=== PATIENT | male | born 1950 ===

== ENCOUNTER 2018-09-27 06:09 | Inpatient (IN) | payer MEDICARE, OTHER ==
[~2018-09-27] VITALS: Ht 165.1 cm; Wt 81.6 kg
[2018-09-27] VITALS (12 sets, daily range): BP systolic 117–135; BP diastolic 65–98
[2018-09-27] MEDS ORDERED: UNOBMED (07:09)
[2018-09-27] MEDS ORDERED: Lidocaine 1% MPF 10mg/ml 5ml ONE ×2 (07:14→08:08)
[2018-09-27] MEDS ORDERED: Propofol 200mg/20ml IV ONE (07:14)
[2018-09-27] MEDS ORDERED: fentaNYL 100 mcg/2 mL IV ONE ×2 (07:14→09:12)
[2018-09-27] MEDS ORDERED: Midazolam 2mg/2ml Inj ONE (07:14)
[2018-09-27 07:16] LABS: BASOPHILS % (AUTO) 1.3 % (0.0-2.0); HEMATOCRIT 45.5 % (42.0-52.0); HEMOGLOBIN 15.8 G/DL (14.2-18.0); LYMPHOCYTES % (AUTO) 19.4 % (20.0-45.0); MEAN CORPUSCULAR VOLUME 95 FL (80-99); NEUTROPHILS % (AUTO) 66.4 % (45.0-75.0); PLATELET COUNT 146 K/UL (150-450); RED BLOOD COUNT 4.81 M/UL (4.70-6.10); RED CELL DISTRIBUTION WIDTH 12.7 % (11.6-14.8)
--- NOTE | 2018-09-27 07:29 | Anethesia Preoperative Eval ---
Anesthesia Pre-op PMH/ROS General Date of Evaluation: September 27, 2018 Time of Evaluation: 07:28 Anesthesiologist: Tawnya Viera CRNA ASA Score: ASA 2 Mallampati Score Class I : Soft palate, uvula, fauces, pillars visible Class II: Soft palate, uvula, fauces visible Class III: Soft palate, base of uvula visible Class IV: Only hard plate visible Mallampati Classification: Class II Surgeon: Chandrakant Diagnosis: LEFT knee osteoarthritis Surgical Procedure: LEFT total knee replacement Anesthesia History: none Social History: smoking Family History: no anesthesia problems Allergies: Coded Allergies: No Known Allergies (Unverified , 09/27/18) Medications: see eMAR Patient NPO?: Yes NPO Date: September 26, 2018 NPO Time: 2300 Past Medical History Cardiovascular: Reports: HTN - non-compliant with meds; Denies: CAD, [place], valve dz, arrhythmia, other Pulmonary: Denies: asthma, COPD, DELLA, other Gastrointestinal/Genitourinary: Reports: other - Hx of Hep C, resolved per patient; Denies: GERD, CRI, ESRD Neurologic/Psychiatric: Reports: depression/anxiety; Denies: dementia, CVA, TIA, other Endocrine: Denies: DM, hypothyroidism, steroids, other HEENT: Reports: cataract (L), cataract (R); Denies: glaucoma, PAIMIUT (L), PAIMIUT (R), other Hematology/Immune: Denies: anemia, DVT, bleeding disorder, other Musculoskeletal/Integumentary: Reports: OA; Denies: RA, DJD, DDD, edema, other PMH Narrative: as noted above PSxH Narrative: (B) cataract, LEFT knee arthroscopy Anesthesia Pre-op Phys. Exam Physician Exam Last Vital Signs Date Time Temp Pulse Resp B/P (MAP) Pulse Ox O2 Delivery O2 Flow Rate FiO2 09/27/18 07:13 Room Air 09/27/18 07:09 97.2 71 20 126/74 (91) 95 Constitutional: NAD Neurologic: other - alert & oriented Cardiovascular: RRR Respiratory: CTA Gastrointestinal: S/NT/ND Airway Exam Mallampati Score: Class II MO: full Neck: FROM TMD: >3 FB ROM: full Teeth: intact Dentures: no upper, no lower Anesthesia Pre-op A/P Labs Hematology Test 09/27/18 06:50 White Blood Count 6.0 K/UL (4.8-10.8) Red Blood Count 4.81 M/UL (4.70-6.10) Hemoglobin 15.8 G/DL (14.2-18.0) Hematocrit 45.5 % (42.0-52.0) Mean Corpuscular Volume 95 FL (80-99) Mean Corpuscular Hemoglobin 32.9 PG (27.0-31.0) H Mean Corpuscular Hemoglobin Concent 34.8 G/DL (32.0-36.0) Red Cell Distribution Width 12.7 % (11.6-14.8) Platelet Count 146 K/UL (150-450) L Mean Platelet Volume 6.1 FL (6.5-10.1) L Neutrophils (%) (Auto) 66.4 % (45.0-75.0) Lymphocytes (%) (Auto) 19.4 % (20.0-45.0) L Monocytes (%) (Auto) 11.0 % (1.0-10.0) H Eosinophils (%) (Auto) 2.0 % (0.0-3.0) Basophils (%) (Auto) 1.3 % (0.0-2.0) Coagulation Test 09/27/18 06:50 Prothrombin Time Pending Prothromb Time International Ratio Pending Activated Partial Thromboplast Time Pending Chemistry Test 09/27/18 06:50 Sodium Level Pending Potassium Level Pending Chloride Level Pending Carbon Dioxide Level Pending Blood Urea Nitrogen Pending Creatinine Pending Estimat Glomerular Filtration Rate Pending Glucose Level Pending Calcium Level Pending Studies Pre-op Studies: EKG - LEFT fascicular blocl possible anterolateral infarct Risk Assessment & Plan Assessment: ASA 2, ok to proceed Plan: GA with femoral block Status Change Before Surgery: No Pre-Antibiotics Drug: Tawnya Cabrera CRNA September 27, 2018 07:29
[2018-09-27 07:32] LABS: ANION GAP 9 mmol/L (5-15); BLOOD UREA NITROGEN 17 mg/dL (7-18); CALCIUM 9.1 MG/DL (8.5-10.1); CARBON DIOXIDE 25 MMOL/L (21-32); CHLORIDE 104 MMOL/L (98-107); CREATININE 0.9 MG/DL (0.55-1.30); POTASSIUM 3.8 MMOL/L (3.5-5.1); SODIUM 138 MMOL/L (136-145)
[2018-09-27 07:50] LABS: INR 1.1 (0.9-1.1)
[2018-09-27] MEDS ORDERED: NeoSporin Gu Irrig 1ml Amp IRRIG ONE ×2 (07:55→07:56)
[2018-09-27] MEDS ORDERED: Bacitracin 50000 Units Vial ONE ×2 (07:55→07:56)
--- NOTE | 2018-09-27 08:00 | Pre-Procedure Note/Attestation ---
Pre-Procedure Note/Attestation Complete Prior to Procedure Planned Procedure: left Procedure Narrative: left knee replacemett Indications for Procedure Pre-Operative Diagnosis: left knee arthritis Attestation I attest that I discussed the nature of the procedure; its benefits; risks and complications; and alternatives (and the risks and benefits of such alternatives ), prior to the procedure, with the patient (or the patient's legal sales utility representative). I attest that, if there was a reasonable possibility of needing a blood transfusion, the patient (or the patient's legal sales utility representative) was given the [facility] standardized written summary, pursuant to the [place] Blood Safety Act ([place] Health and Safety Code # 1645, as amended). I attest that I re-evaluated the patient just prior to the surgery and that there has been no change in the patient's H&P, except as documented below: Tomas Stallings MD September 27, 2018 08:00
--- NOTE | 2018-09-27 08:01 | Brief Operative Note ---
Immediate Post Operative Note Operative Note Chief Complaint: left knee arthritis Pre-op Diagnosis: left knee arthritis Procedure: left knee replacement Post-op Diagnosis: arthritis Post-op Diagnosis: same as pre-op Findings: consistent w/pre-op dx studies Surgeon: lily Anesthesia: general Specimen: yes Complications: none Condition: stable Fluids: min Estimated Blood Loss: minimal Drains: hemovac Implant(s) used?: Yes Tomas Stallings MD September 27, 2018 08:01
[2018-09-27] MEDS ORDERED: HYDROcodone/Acetamin 7.5/325 tab ORAL PRN (08:15)
[2018-09-27] MEDS ORDERED: Morphine Sulfate 4mg/ml Inj (IV USE ONLY) IVP PRN (08:15)
[2018-09-27] MEDS ORDERED: Morphine Sulfate 2mg/ml Inj(IV/IM USE ONLY) IVP PRN ×3 (08:15→16:30)
[2018-09-27] MEDS ORDERED: Sterile Water Irrig 1000ml IRRIG ONE (08:30)
[2018-09-27] MEDS ORDERED: Tranexamic Acid 1,000 MG in NS 55 ML IV ONE (08:30)
[2018-09-27] MEDS ORDERED: LR 1000ml ONE (08:30)
[2018-09-27] MEDS ORDERED: Hydromorphone 0.5mg/0.5ml inj IVP PRN (08:30)
[2018-09-27] MEDS ORDERED: Ketorolac 30mg Inj IV PRN (08:30)
[2018-09-27] MEDS ORDERED: NS Irrig 2000ml IRRIG ONE (08:51)
[2018-09-27] MEDS ORDERED: Acetaminophen (Non formulary) 100 ML IV ONE (09:30)
--- NOTE | 2018-09-27 10:46 | Immediate Post-Op Evaluation ---
Immediate Post-Op Evalulation Immediate Post-Op Evalulation Procedure: LEFT total knee replacement Date of Evaluation: September 27, 2018 Time of Evaluation: 10:35 IV Fluids: LR 1600ml Estimated Blood Loss: 100 ml Blood Pressure Systolic: 119 Blood Pressure Diastolic: 77 Pulse Rate: 70 Respiratory Rate: 16 O2 Sat by Pulse Oximetry: 100 Temperature (Fahrenheit): 97.2 Pain Score (1-10): 2 Nausea: No Vomiting: No Complications none Patient Status: patent, extubated Hydration Status: adequate Drug: cefazolin 2000 mg IV Given Within 1 Hr of Incision: Yes Time Given: 08:45 Tawnya Viera CRNA September 27, 2018 10:46
--- NOTE | 2018-09-27 11:53 | NUR ---
NURSE NOTES: received patient asleep but arosable for name, on oxygen 3L, VS WNL, surgical site with LYNDA wrap and knee immobilizer, no bleeding noted, neuro check stable, circulation with in normal limit. PT Darell aware of POD#0 eval. Patient has valubelse at bed side and refused to send it to the safe. signed the form to keep it at bedside, Receiving nurse verified the belonging as listed on the belonging list paper and signed by both nurses. It has a black LG phone with out no shake feeder. Patient verbalized takes blood pressure medication two kind but doesn't know the name of the medication, patient still sleepy will follow up when he wakes up. Dr. Pete notified of patient arrival and home medication situation.
--- NOTE | 2018-09-27 12:05 | Diagnostic Imaging Report ---
Indication: Knee pain Technique: 3 views of the left knee Comparison: None Findings: Bone mineralization within normal. No acute fracture identified. Overall moderate osteoarthrosis of the knee is noted with joint space narrowing and tricompartmental osteophytes. Joint space narrowing is most severe in the patellofemoral and femorotibial compartments. No suprapatellar joint effusion. No radio opaque foreign body. Impression: Osteoarthrosis. No evidence of acute fracture.
--- NOTE | 2018-09-27 13:17 | NUR ---
NURSE NOTES: patient has hiw own walker at bedside with patient label on it. Addendum: 09/27/18 at 1754 by MARIE CROWELL RN NURSE NOTES: patient has his own walker at bedside with patient label on it.
[2018-09-27] MEDS: Enoxaparin 40mg Inj SUBQ SCH (14:00)
--- NOTE | 2018-09-27 14:21 | Diagnostic Imaging Report ---
Indication: Pain Technique: 2 portable views of the left knee Comparison: Earlier the same day Findings: Interval surgery with total knee arthroplasty. No hardware-related complication is evident. Gas in the joint and subcutaneous tissues consistent with recent surgery. Surgical skin juan antonio are noted. External brace is noted. Impression: Expected appearance status post recent total knee arthroplasty. No evidence of hardware-related complication.
[2018-09-27] MEDS: D5 1/2NS w/KCl 20mEq 1,000 ML IV SCH (14:59)
--- NOTE | 2018-09-27 15:30 | NUR ---
NURSE NOTES: Unable to verify ordered Lovenox from Dr. Estrada, Dr. Jarquin tried to reach Dr. Estrada and Yanci to verify as well unable to get confirmation to administer the medication POD#0, Pharmacist Edwin notified regarding the order as well unable to obtain an ok to administer the medication. Med on hold till order verify to start today.
[2018-09-27] MEDS ORDERED: AMLODIPINE BESYL5 MG ORAL (15:39)
[2018-09-27] MEDS ORDERED: HYDROCHLOROTH12.5 M2 ORAL (15:39)
[2018-09-27] MEDS ORDERED: BUPROPION HCL100 MG ORAL (15:39)
[2018-09-27] MEDS ORDERED: Chloraseptic Spray 20mL Bottle ORAL PRN (16:00)
[2018-09-27] MEDS ORDERED: HYDROcodone/Acetamin 5/325 tab ORAL PRN (16:30)
[2018-09-27] MEDS ORDERED: oxyCODONE 5mg IR tab ORAL SCH (16:34)
[2018-09-27] MEDS: ceFAZolin sod 1 GM in D5W 55 ML IV SCH (17:11)
[2018-09-27] MEDS: Docusate 100mg cap ORAL SCH (17:20)
--- NOTE | 2018-09-27 17:54 | NUR ---
NURSE NOTES: Patient unable to tolerate CPM 60 degree reduced to 45 able to tolerate 90min. Neuro check stable no bleeding. Home medication list given by Dr. Pete reconciled.
--- NOTE | 2018-09-27 18:00 | NUR ---
P.T Note:late entry 1345 Order for CPM received. CPM set up and currently tolerating 0-60 deg. Education patient on use and benefits of CPM post op. Pt verbalized/indicated understanding. CPM endorsed to nursing at the end of P.T shift.
--- NOTE | 2018-09-27 18:06 | NUR ---
P.T Note: late entry 1345 P.T evaluation completed and treatment initiated POD #0 per TKR protocol. Please refer to P.T evaluation for current functional status. Pt is limited by L knee LOM and pain as well as feeling groggy due to medications/ anaesthesia still in effect post op. Pt Able to perform bed mobility and transfer mobility with MIN A X 1 and was able to ambulate total of 15 ft with MIN A X 1 : unable to ambulate farther distance due to pt feeling groggy. CPM set up and tolerating 0-60 deg. Pt will be seen BID 7x/wk or until DC. Recommend FWW and raised toilet seat at DC. Thank you for this referral.
--- NOTE | 2018-09-27 19:41 | NUR ---
HAND-OFF: Report given to SHERRI Johnson patient stable condition reporting pain 7/10 med will be given.
--- NOTE | 2018-09-27 19:43 | NUR ---
NURSE NOTES: Report taken from SHERRI Canela. Patient is awake and in bed, A&Ox4. No signs of distress on room air. Complaining of increasing pain since the spinal block has been wearing down, 10/30, central to surgical site. Surgical site wrapped in LYNDA bandage, no saturation, c/d/i. Circulation to left LE intact, foot warm to the touch. Patient stated he has gotten back most of his sensation. IV site c/d/i and patent running D5 1/2 NS+20KCl at 75mls/hr. Has knee immobilizer order, currently off. He has all of his valuable at bedside, refused to give to security. Bed in lowest position, call light within reach.
[2018-09-27] MEDS: Hydromorphone 0.5mg/0.5ml inj SUBQ PRN (20:18)
[2018-09-27] MEDS: Dronabinol 2.5mg Cap ORAL SCH (21:30)
[2018-09-28] MEDS: ceFAZolin sod 1 GM in D5W 55 ML IV SCH (00:42)
[2018-09-28] MEDS: Hydromorphone 0.5mg/0.5ml inj SUBQ PRN ×3 (00:47→19:46)
--- NOTE | 2018-09-28 02:00 | Consultation ---
DATE OF CONSULTATION: 09/27/2018 CONSULTING PHYSICIAN: Lopez Jarquin M.D. REFERRING PHYSICIAN: Tomas Stallings M.D. REASON FOR CONSULTATION: Acute pain consult. HISTORY OF PRESENT ILLNESS: Dear Dr. Tomas Stallings, Thank you kindly for consulting me to evaluate and render an opinion as to how to proceed in the management of the patient's acute postoperative left knee pain after left total knee arthroplasty. The patient is a 68-year-old gentleman, who I saw at the bedside on your request to help with his pain control. I saw the patient at the bedside. I performed a detailed history and physical examination I discussed the case with the nurse RN, Hilton along with yourself, Dr. Stallings. I reviewed the medical record in detail including advance directives. PAST MEDICAL HISTORY: 1. Acute postoperative left knee pain status post left total knee arthroplasty by Dr. Tomas Stallings in September 2017. 2. Elderly age. 3. Hepatitis C. 4. Hypertension. 5. Mild obesity. PAST SURGICAL HISTORY: Left knee arthroscopy. MEDICATIONS AT HOME: Bupropion 100 mg daily, hydrochlorothiazide, and Norvasc. ALLERGIES: No known drug allergies. SOCIAL HISTORY: The patient lives in [place], [place]. He denies tobacco usage. He admits to drinking a few beers on the weekends. He admits to smoking 3 or 4 puffs of marijuana a few times per month at social gatherings. FAMILY HISTORY: Lung disease. REVIEW OF SYSTEMS: Per Dr. Gama Pete. PHYSICAL EXAMINATION: GENERAL: Age 68, height 5 feet 6 inches, weight 186 pounds, and body mass index 30. VITAL SIGNS: Afebrile, pulse 69, respirations 19, blood pressure 129/83, and oxygen saturation 96%. HEENT: Normocephalic and atraumatic. Extraocular muscles intact. Pupils are equal, round, and reactive to light and accommodative. The patient's face has a reddish hue. EXTREMITIES: Moving all extremities x4 with significant pain with movement of the left knee especially with flexion. The dressing is clean and dry. Moving all toes x10. Moving all extremities x4. NEUROLOGIC: Detailed neurologic exam per Dr. Stallings. CARDIOPULMONARY: Deferred to Dr. Pete. DIAGNOSTIC AND LABORATORY STUDIES: Diagnostic testing shows laboratory studies from 09/25/2018, white count 7, hematocrit 48, and platelets 160,000. Sodium 142, potassium 4.5, chloride 106, bicarb 27, glucose 103, BUN 12, and creatinine 0.8. Calcium 9.5. Total protein 7.9. Albumin 4.0. Alkaline phosphatase 103, AST 38, and ALT 39. Total bilirubin 0.6. INR 1.1. PTT 27. Urinalysis is negative. A 12-lead EKG shows normal sinus rhythm, left anterior fascicular block dated 09/25/2018, ventricular rate 77. Echocardiogram shows ejection fraction 60% to 65% dated 09/25/2018. Pulmonary function testing in the medical record. Preoperative chest x-ray shows normal chest exam 09/25/2018. IMPRESSION: 1. Acute postoperative left knee pain status post left total knee arthroplasty by Dr. Tomas Stallings in September 2017. 2. Elderly age. 3. Hepatitis C. 4. Hypertension. 5. Mild obesity. TREATMENT RECOMMENDATIONS: I have recommended the following orders to help with his pain control postoperatively. I have asked the nurse to dose the patient with oxycodone instant release 5 mg now as a test trial dose. I will continue this dosing every three hours p.r.n. for mild pain. I have ordered a breakthrough dose of Dilaudid 0.5 mg subcutaneously every three hours p.r.n. for moderate pain. I will trial the patient on a nightly dose of Marinol 2.5 mg as the patient does admit to using marijuana from time to time. The patient does drink alcohol on a fairly regular basis on the weekends. If his admission drinking is less than actual, the patient may need a dosing of benzodiazepine to prevent delirium tremens. I will defer this issue to Dr. Pete. He is following the patient on a long-term basis in the outpatient setting and also will be seeing the patient here in the hospital to manage his hypertension and other medical issues. I will empirically place the patient on Pepcid 20 mg b.i.d. for GI ulcer prophylaxis. I have ordered p.r.n. dose of Mylanta 30 mL p.r.n. for any GERD symptoms. The patient will be placed on Colace 100 mg b.i.d. as a stool softener, but I will defer any laxatives at this time until the patient is more ambulatory. The patient will begin the physical therapy training per Dr. Stallings, who has also appropriately ordered Lovenox as a chemical anticoagulant in this patient. The patient is at significant risk for deep venous thrombosis and pulmonary embolism complications due to the nature of the surgery. I have ordered Benadryl 25 mg orally every 6 hours in case of any itching complaints. Zofran is available as a rescue antiemetic. I did demonstrate proper usage of incentive spirometer at the patient's bedside to encourage good pulmonary toilet. Case management department has been consulted by Dr. Stallings today to assist with discharge planning. Lopez Jarquin M.D. DR: DENISE JOB#: [id number] CC:
[2018-09-28] MEDS: D5 1/2NS w/KCl 20mEq 1,000 ML IV SCH (02:30)
[2018-09-28] MEDS ORDERED: Hydromorphone 0.5mg/0.5ml inj SUBQ SCH (07:07)
[2018-09-28 07:20] LABS: INR 1.1 (0.9-1.1)
[2018-09-28 07:21] LABS: BASOPHILS % (AUTO) 0.8 % (0.0-2.0); EOSINOPHILS % (AUTO) 1.5 % (0.0-3.0); HEMATOCRIT 40.9 % (42.0-52.0); HEMOGLOBIN 14.4 G/DL (14.2-18.0); LYMPHOCYTES % (AUTO) 7.6 % (20.0-45.0); MEAN CORPUSCULAR VOLUME 94 FL (80-99); MONOCYTES % (AUTO) 10.3 % (1.0-10.0); NEUTROPHILS % (AUTO) 79.8 % (45.0-75.0); PLATELET COUNT 126 K/UL (150-450); RED BLOOD COUNT 4.34 M/UL (4.70-6.10); RED CELL DISTRIBUTION WIDTH 12.7 % (11.6-14.8); WHITE BLOOD COUNT 9.1 K/UL (4.8-10.8)
--- NOTE | 2018-09-28 07:48 | NUR ---
HAND-OFF: Report given to SHERRI Vazquez. Patient is fatigued and in bed. VS stable.
[2018-09-28 08:00] VITALS: BP 120/70
--- NOTE | 2018-09-28 08:00 | NUR ---
NURSE NOTES: Report received from outgoing nurse, rounds made. Patient resting in high fowlers position in bed. No SOB on RA, No NV. Patient reports pain 9/10 to LLE, will medicate as ordered by Dr. Jarquin. Ice pack to left knee. Surgical dressing to left knee CDI, immobilizer in place. CMS +, denies NT, wiggles, skin warm, pedal pulse palpable, capillary refill <3 seconds. Right SCD on. Encouraged oral intake, IVF infusing to right hand as ordered, 75 ml/hr, site asymptomatic. Demonstrated IS use, with voluntary coughing, patient returned demonstration, requires reinforcement. Call light in reach, bed in lowest position, will continue to monitor.
[2018-09-28] MEDS: BuPROPion SR 100mg tab ORAL SCH (08:34)
[2018-09-28] MEDS: Docusate 100mg cap ORAL SCH ×2 (08:35→17:41)
[2018-09-28] MEDS ORDERED: hydroCHLOROthiazide 12.5mg TAB ORAL SCH (09:00)
--- NOTE | 2018-09-28 09:37 | 48 Hour Post Anesthesia Eval ---
Post Anesthesia Evaluation Procedure: LEFT total knee replacement Date of Evaluation: September 28, 2018 Time of Evaluation: 09:36 Blood Pressure Systolic: 134 0: 72 Pulse Rate: 68 Respiratory Rate: 20 Temperature (Fahrenheit): 97.6 O2 Sat by Pulse Oximetry: 98 Airway: patent Nausea: No Vomiting: No Pain Intensity: 3 Hydration Status: adequate Cardiopulmonary Status: stable Mental Status/LOC: patient returned to baseline Follow-up Care/Observations: n/a Post-Anesthesia Complications: none Follow-up care needed: N/A Trveer Hassan MD September 28, 2018 09:37
--- NOTE | 2018-09-28 09:50 | NUR ---
NURSE NOTES: Notified Dr. Pete of platelets 126, order received for okay to give Lovenox. See orders.
[2018-09-28] MEDS: Enoxaparin 40mg Inj SUBQ SCH (10:13)
[2018-09-28] MEDS: oxyCODONE 5mg IR tab ORAL PRN ×2 (10:42→15:12)
[2018-09-28 12:00] VITALS: BP 117/88
--- NOTE | 2018-09-28 12:05 | NUR ---
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 No evidence of acute fracture. IS:LEFT TOTAL KNEE REPLACEMENT SURGERY ADMITTED ON 3E MED/SURG DCP: RETURN HOME
--- NOTE | 2018-09-28 12:27 | General Progress Note ---
Assessment/Plan Assessment/Plan: left knee arthritis left knee replacement PLAN 1. incentive spirometry 2. Lovenox 3. PT evaluation and therapy 4. Hydration 5. Pain management 6. discharge once stable with outpatient follow up Subjective Allergies: Coded Allergies: No Known Allergies (Unverified , 09/27/18) Subjective care noted overall doing well Objective Last 24 Hour Vital Signs Date Time Temp Pulse Resp B/P (MAP) Pulse Ox O2 Delivery O2 Flow Rate FiO2 09/28/18 09:37 68 20 98 09/28/18 09:00 Room Air 09/28/18 08:35 78 120/70 09/28/18 08:00 98.5 78 17 120/70 (87) 92 09/27/18 21:00 Room Air 09/27/18 13:00 97.7 69 19 129/83 (98) 96 09/27/18 12:30 98.2 71 17 134/98 (110) 98 Intake and Output 09/27/18 09/28/18 18:59 06:59 Intake Total 1800 ml 450 ml Output Total 800 ml 550 ml Balance 1000 ml -100 ml Intake Oral 450 ml IV Total 1800 ml Output Urine Total 700 ml 550 ml Estimated Blood Loss 100 ml # Voids 1 1 Laboratory Tests 09/28/18 06:30: White Blood Count 9.1#, Red Blood Count 4.34L, Hemoglobin 14.4, Hematocrit 40.9L , Mean Corpuscular Volume 94, Mean Corpuscular Hemoglobin 33.1H, Mean Corpuscular Hemoglobin Concent 35.1, Red Cell Distribution Width 12.7, Platelet Count 126L, Mean Platelet Volume 6.8, Neutrophils (%) (Auto) 79.8H, Lymphocytes (%) (Auto) 7.6L, Monocytes (%) (Auto) 10.3H, Eosinophils (%) (Auto) 1.5, Basophils (%) (Auto) 0.8, Prothrombin Time 11.5, Prothromb Time International Ratio 1.1 Height (Feet): 5 Height (Inches): 5.00 Weight (Pounds): 180 Objective WDWN NAD clear breath sounds bilaterally without rhonchi or wheeze [id number] without MRG NABS nontender no HSM no CCE nonfocal knee dressed Gama Pete MD September 28, 2018 12:27
[2018-09-28 16:00] VITALS: BP 133/81
--- NOTE | 2018-09-28 16:30 | NUR ---
NURSE NOTES: CPM continues at 50 degrees, medicated with Roxicodone at 1512, increased CPM to 55 degrees at 1545. Patient requested to be decreased to 50 degrees at 1555. Reviewed plans and CPM goal with patient, verbalized understanding. Provided ice pack. Will continue to monitor.
--- NOTE | 2018-09-28 17:00 | Progress Note ---
DATE: 09/28/2018 ACUTE PAIN MANAGEMENT PHYSICIAN PROGRESS NOTE MEDICATIONS: Medication administration record reviewed. Medications include Tylenol, Mylanta, Norvasc, Wellbutrin, Benadryl, Colace, Marinol, Lovenox, Pepcid, Dilaudid, Zofran, oxycodone, Chloraseptic spray. LABORATORY STUDIES: From this morning are pending. Yesterday morning preoperatively showed a hematocrit of 46 with a white count of 6, platelets 146,000. Vital signs, currently within normal limits. Afebrile, pulse 69, respirations 19, blood pressure 129/83, oxygen saturation 96% on room air. I saw the patient at the bedside after discussion with the nurse, Antwon. The patient did tolerate his nightly dose of Marinol without any over sedation. He has used breakthrough doses of subcutaneous Dilaudid with good efficacies. Later today, we hope to trial the oral oxycodone tablets for tolerability and effectiveness. The patient is alert and oriented x3. He denies any shortness of breath or chest pain. Dr. Stallings has ordered Lovenox to start this morning for chemical anticoagulation. Incentive spirometer remains at the bedside to encourage good pulmonary toilet. The patient has already been using the CPM device and will continue per surgical recommendations. Physical therapy training will start today with ambulation. Overall, the patient is making good progress. We will contact case management department to help with discharge planning. Lopez Jarquin M.D. DR: Venessa JOB#: [id number] CC:
--- NOTE | 2018-09-28 19:30 | NUR ---
NURSE NOTES: Received report from SHERRI Vazquez and rounds done. Received pt laying in bed, AOX4, pain level 7/10, will medicate for pain, no distress noted. L knee on CPM tolerating 0-60 degrees. Surgical dressing C/D/I. Scd in-place on right lower extremity. Bed in low position and locked, side rails up x 2, call light within reach. Will continue to monitor.
--- NOTE | 2018-09-28 19:30 | NUR ---
HAND-OFF: Report given to Ruslan Santos RN.
[2018-09-28 20:00] VITALS: BP 132/86
[2018-09-28] MEDS: Dronabinol 2.5mg Cap ORAL SCH (20:43)
--- NOTE | 2018-09-28 21:00 | NUR ---
NURSE NOTES: CPM discontinued placed rolled towel underneath left ankle. Pt denies pain at this time. No distress noted. Will continue to monitor.
[2018-09-29] VITALS (7 sets, daily range): BP systolic 99–139; BP diastolic 68–86
--- NOTE | 2018-09-29 00:27 | NUR ---
NURSE NOTES: Pt's temp. 101.5. Tylenol 650mg PO given. Pt denies any pain at this time. No distress noted. Will continue to monitor.
[2018-09-29] MEDS: oxyCODONE 5mg IR tab ORAL PRN ×2 (01:04→12:32)
--- NOTE | 2018-09-29 01:06 | NUR ---
NURSE NOTES: Re-check temp. 99.6. Instructed pt to use IS q hour x 10 while awake. Pt verbalized understanding of instruction.
[2018-09-29] MEDS: Hydromorphone 0.5mg/0.5ml inj SUBQ PRN ×2 (04:58→16:18)
--- NOTE | 2018-09-29 05:40 | NUR ---
NURSE NOTES: POD #2 today, dressing change done to left knee per MD order. Applied 4x4 and tegaderm, clean dry and intact. No bleeding noted. Pt tolerated procedure well.
[2018-09-29 06:40] LABS: BASOPHILS % (AUTO) 1.3 % (0.0-2.0); HEMATOCRIT 40.6 % (42.0-52.0); HEMOGLOBIN 14.2 G/DL (14.2-18.0); LYMPHOCYTES % (AUTO) 13.1 % (20.0-45.0); MEAN CORPUSCULAR VOLUME 94 FL (80-99); MONOCYTES % (AUTO) 14.1 % (1.0-10.0); NEUTROPHILS % (AUTO) 70.6 % (45.0-75.0); PLATELET COUNT 144 K/UL (150-450); RED BLOOD COUNT 4.32 M/UL (4.70-6.10); RED CELL DISTRIBUTION WIDTH 12.2 % (11.6-14.8); WHITE BLOOD COUNT 10.9 K/UL (4.8-10.8)
[2018-09-29 07:20] LABS: INR 1.1 (0.9-1.1)
--- NOTE | 2018-09-29 07:20 | NUR ---
NURSE NOTES: Report received from Ruslan POLANCO, rounds made. Patient sleeping in supine position, in bed. No distress noted on RA. Right hand heplock intact, site asymptomatic. Left knee dressing noted with bloody shadow drainage, outlined. Call light in reach, bed in lowest position, will continue to monitor.
--- NOTE | 2018-09-29 07:32 | NUR ---
HAND-OFF: Report given to SHERRI Vazquez. Pt stable condition.
--- NOTE | 2018-09-29 08:00 | Progress Note ---
DATE: 09/29/2018 ACUTE PAIN MANAGEMENT PHYSICIAN PROGRESS NOTE MEDICATIONS: Medication administration record reviewed. Medications include Colace, Pepcid, Lovenox, Norvasc, Wellbutrin, and nightly Marinol. P.r.n. medications include Chloraseptic spray, Mylanta, Benadryl, Zofran, Tylenol, oxycodone, and Dilaudid. OBJECTIVE: VITAL SIGNS: Afebrile currently with a T-max of 101.5 at 1 o'clock this morning. Pulse 96, respirations 19, blood pressure 135/82, and oxygen saturation % on room air. I saw the patient at the bedside. I have discussed the case with the nurse RN, Ruslan. The nurse changed the knee dressing. The patient received his nightly Marinol dosing without any oversedation. This seems to be a good sedative agent for the patient to help him sleep and to help with his pain. The patient has been alternating with p.r.n. doses of oxycodone 5 mg along with breakthrough doses of subcutaneous Dilaudid. I will continue this analgesic plan has ordered, as it seems effective. The patient has been able to advance with his CPAP device as well as with ambulation. Lovenox has been started at 40 mg daily for DVT prophylaxis. I do have the patient on Pepcid b.i.d. for GI ulcer prophylaxis. The patient is breathing comfortably on room air. I would recommend increase incentive spirometer usage to help with better pulmonary toilet due to his recent fevers. Dr. Pete, is following the patient for his multiple medical issues including hypertension. The spring encaser, Lacy , has been evaluating the patient for discharge planning. I will leave a prescription for Percocet for outpatient usage. Lopez Jarquin M.D. DR: MYLA JOB#: [id number] CC:
--- NOTE | 2018-09-29 08:57 | General Progress Note ---
Assessment/Plan Assessment/Plan: left knee arthritis left knee replacement PLAN 1. incentive spirometry 2. Lovenox 3. PT evaluation and therapy 4. Hydration 5. Pain management 6. discharge planning Subjective Allergies: Coded Allergies: No Known Allergies (Unverified , 09/27/18) Subjective care noted overall doing well Objective Last 24 Hour Vital Signs Date Time Temp Pulse Resp B/P (MAP) Pulse Ox O2 Delivery O2 Flow Rate FiO2 09/29/18 04:00 99.0 96 19 135/82 (99) 96 09/29/18 01:06 99.6 09/29/18 00:56 99.6 09/29/18 00:56 101.5 09/29/18 00:00 101.5 95 20 139/83 (101) 96 09/28/18 21:00 Room Air 09/28/18 20:00 99.0 93 20 132/86 (101) 95 09/28/18 16:00 98.7 77 20 133/81 (98) 96 09/28/18 12:00 98.1 84 19 117/88 (98) 97 09/28/18 09:37 68 20 98 09/28/18 09:00 Room Air Intake and Output 09/28/18 09/29/18 19:00 07:00 Intake Total 300 ml 480 ml Output Total 1000 ml Balance 300 ml -520 ml Intake Oral 480 ml IV Total 300 ml Output Urine Total 1000 ml # Voids 1 Laboratory Tests 09/29/18 05:50: White Blood Count 10.9H, Red Blood Count 4.32L, Hemoglobin 14.2, Hematocrit 40.6L, Mean Corpuscular Volume 94, Mean Corpuscular Hemoglobin 32.8H, Mean Corpuscular Hemoglobin Concent 35.0, Red Cell Distribution Width 12.2, Platelet Count 144L, Mean Platelet Volume 6.3L, Neutrophils (%) (Auto) 70.6, Lymphocytes (%) (Auto) 13.1L, Monocytes (%) (Auto) 14.1H, Eosinophils (%) (Auto) 1.0, Basophils (%) (Auto) 1.3, Prothrombin Time 11.4, Prothromb Time International Ratio 1.1 Height (Feet): 5 Height (Inches): 5.00 Weight (Pounds): 180 Objective WDWN NAD clear breath sounds bilaterally without rhonchi or wheeze [id number] without MRG NABS nontender no HSM no CCE nonfocal knee dressed Gama Pete MD September 29, 2018 08:57
[2018-09-29] MEDS: Docusate 100mg cap ORAL SCH ×2 (09:56→18:07)
[2018-09-29] MEDS: Enoxaparin 40mg Inj SUBQ SCH (09:56)
[2018-09-29] MEDS: BuPROPion SR 100mg tab ORAL SCH (09:56)
--- NOTE | 2018-09-29 14:51 | Cardiology Report ---
APPROVED REPORT EKG Measurement Heart [id number] Normal sinus rhythm Left anterior fascicular block Possible Anterolateral infarct, age undetermined Abnormal ECG
--- NOTE | 2018-09-29 16:00 | NUR ---
NURSE NOTES: Reinforced the importance of IS every hour with voluntary coughing. Patient performs IS use correctly, needs reminders throughout shift. Patient encouraged to increase PO fluid intake. Verbalized understanding. Will continue to monitor.
--- NOTE | 2018-09-29 19:15 | NUR ---
NURSE NOTES: Left knee dressing changed 1215, due to increased bloody (fresh red blood) drainage from left knee surgical incision, active bleeding noted with dressing change, juan antonio intact, skin together, no redness, mild swelling, no odor. Called Dr. Stallings, and notified of above, was instructed to follow up with Dr. Pete. Called Dr. Pete, notified of vitals, afebrile, labs, Lovenox, mild swelling, surgical site characteristics, orders received to apply pressure dressing and hold Lovenox x2 days, 09/30 and 10/01. Patient updated with new plan of care. New dressing applied at 1630 (4x4, tegederm, sally wrap), no active bleeding noted with dressing change. Ice pack applied to posterior and left lateral knee for comfort. Reassessed left knee dressing at 1915, x2 small areas of light shadow drainage, noted and circled. Will endorse to next shift RN for further assessment and monitoring.
--- NOTE | 2018-09-29 19:15 | NUR ---
HAND-OFF: Report given to Venice POLANCO.
--- NOTE | 2018-09-29 19:15 | NUR ---
HAND-OFF: Report given to Venice POLANCO. Endorsed left knee surgical wound site status, with new x2 small light shadow drainage, circled. Pressure dressing (LYNDA wrap) in place.
--- NOTE | 2018-09-29 19:30 | NUR ---
NURSE NOTES: Received report from SHERRI Vazquez. Noted two small bleeding areas, circled by previous shift. No increase in bleeding noted. Dario wrap reapplied. Patient denied pain, bed in low position, locked, side rails up x2, call light within reach. Encouraged to use incentive spirometer. Patient states he has been doing IS exercises. Encouraged to drink fluids.
[2018-09-29] MEDS: Dronabinol 2.5mg Cap ORAL SCH (20:51)
--- NOTE | 2018-09-29 22:56 | NUR ---
HAND-OFF: Report given to SHERRI Hollins. Patient in stable condition.
--- NOTE | 2018-09-29 23:00 | NUR ---
NURSE NOTES: Received report & pt from SHERRI Millard. Pt lying in bed, a&ox4, in room air, family member at bedside. No s/s of acute distress & no c/o pain. Surgical dressing C/D/I. No IV access noted, will start one later. Bed in lowest position, call light within reach. Will continue to monitor.
[2018-09-30] VITALS: BP 128/83
--- NOTE | 2018-09-30 00:15 | NUR ---
NURSE NOTES: Given PRN tylenol for temp of 100.8, encouraged and witnessed the use of incentive spirometer. Surgery dressing dry and intact. Fresh ice packs applied to posterior knee.
--- NOTE | 2018-09-30 00:19 | NUR ---
HAND-OFF: Report given to SHERRI Franco.
[2018-09-30 04:00] VITALS: BP 128/85
--- NOTE | 2018-09-30 06:45 | Progress Note ---
DATE: 09/30/2018 ACUTE PAIN MANAGEMENT PHYSICIAN PROGRESS NOTE MEDICATIONS: Medication administration record reviewed. Medications include Chloraseptic spray, oxycodone, Zofran, Dilaudid, Pepcid, Lovenox, Marinol, Colace, Benadryl, Wellbutrin, Norvasc, Mylanta, and Tylenol. LABORATORY STUDIES: From September 29, 2018 shows white count 11, hematocrit 41, and platelets 144. INR 1.1. OBJECTIVE: VITAL SIGNS: Afebrile with a T-max of 100.8 at midnight, pulse 96, respirations 17, blood pressure 128/85, and oxygen saturation 98% on room air. I saw the patient at the bedside. I discussed the case with the nurse RN, Joan. Dr. Pete continues to follow the patient for his medical issues and his postoperative fevers. The patient continues to use the nightly Marinol dosing for his primary analgesia. He uses p.r.n. Tylenol and intermittent doses of oxycodone and Dilaudid to help with his pain as well. This regimen seems to be very effective. The knee dressing is clean and dry. The patient continues to advance with CPM and ambulation rehabilitation. I did leave a prescription for Percocet for outpatient usage. The patient has not been very compliant with his incentive spirometer. Incentive spirometer usage was encouraged to use more aggressively. The patient remains on Lovenox 40 mg daily for DVT prophylaxis. The patient remains on his Wellbutrin for mood stabilization. Lopez Jarquin M.D. DR: MYLA JOB#: [id number] CC:
--- NOTE | 2018-09-30 07:40 | NUR ---
HAND-OFF: Report given to SHERRI Bangura.
--- NOTE | 2018-09-30 07:45 | NUR ---
NURSE NOTES: Received patient in bed, awake, alert and oriented x4. Denies any pain or discomfort @ this time. Surgical dressing intact, no visible active bleeding noted on the dressing. SCD's on right leg. IV intact, no s/s of infiltration. Patient uses urinal. Afebrile @ this time. Bed is in low position and locked. Call light and personnel items within reach. Will continue plan of care.
[2018-09-30 08:00] VITALS: BP 114/72
[2018-09-30] MEDS: Docusate 100mg cap ORAL SCH ×2 (08:35→17:54)
[2018-09-30] MEDS: BuPROPion SR 100mg tab ORAL SCH (08:35)
--- NOTE | 2018-09-30 09:54 | Pulmonology Progress Note ---
Assessment/Plan Assessment/Plan Pulmonary Progress Assessment/Plan: left knee arthritis left knee replacement PLAN 1. incentive spirometry 2. Lovenox 3. PT evaluation and therapy 4. Hydration 5. Pain management 6. discharge planning Subjective Allergies: Coded Allergies: No Known Allergies (Unverified , 09/27/18) Subjective care noted overall doing well Objective Vital Signs Noted Laboratory Tests Noted 09/29/18 05:50: White Blood Count 10.9H, Red Blood Count 4.32L, Hemoglobin 14.2, Hematocrit 40.6L, Mean Corpuscular Volume 94, Mean Corpuscular Hemoglobin 32.8H, Mean Corpuscular Hemoglobin Concent 35.0, Red Cell Distribution Width 12.2, Platelet Count 144L, Mean Platelet Volume 6.3L, Neutrophils (%) (Auto) 70.6, Lymphocytes (%) (Auto) 13.1L, Monocytes (%) (Auto) 14.1H, Eosinophils (%) (Auto) 1.0, Basophils (%) (Auto) 1.3, Prothrombin Time 11.4, Prothromb Time International Ratio 1.1 Height (Feet): 5 Height (Inches): 5.00 Weight (Pounds): 180 Objective WDWN NAD clear breath sounds bilaterally without rhonchi or wheeze [id number] without MRG NABS nontender no HSM no CCE nonfocal knee dressed, on CPM Subjective ROS Limited/Unobtainable: No Allergies: Coded Allergies: No Known Allergies (Unverified , 09/27/18) Objective Last 24 Hour Vital Signs Date Time Temp Pulse Resp B/P (MAP) Pulse Ox O2 Delivery O2 Flow Rate FiO2 09/30/18 09:00 Room Air 09/30/18 08:35 93 114/72 09/30/18 08:00 98.5 93 20 114/72 (86) 95 09/30/18 04:00 99.3 96 17 128/85 (99) 98 09/30/18 01:14 98.7 09/30/18 00:00 100.8 98 17 128/83 (98) 98 09/29/18 21:00 Room Air 09/29/18 20:00 100.4 95 17 124/85 (98) 100 09/29/18 16:00 98.3 89 17 99/68 (78) 97 09/29/18 12:00 98.1 93 17 131/78 (95) 97 09/29/18 10:00 84 116/86 (96) 09/29/18 09:57 84 104/73 Intake and Output 09/29/18 09/30/18 19:00 07:00 Intake Total 650 ml 600 ml Output Total 525 ml 700 ml Balance 125 ml -100 ml Intake Oral 650 ml 400 ml IV Total 200 ml Output Urine Total 525 ml 600 ml Estimated Blood Loss 100 ml # Voids 1 Laboratory Tests 09/30/18 05:34: Prothrombin Time 10.7, Prothromb Time International Ratio 1.0 Current Medications Medications (Trade) Dose Ordered Sig/Stacey Route PRN Reason Start Time Stop Time Status Last Admin Dose Admin Acetaminophen (Tylenol) 650 mg Q6H PRN ORAL Temp > 100.5 09/27/18 16:30 10/27/18 16:29 09/30/18 00:44 Al Hydroxide/Mg Hydroxide (Mylanta) 30 ml Q6H PRN ORAL gerd 09/27/18 16:30 10/27/18 16:29 Amlodipine Besylate (Norvasc) 5 mg DAILY ORAL 09/28/18 09:00 10/28/18 08:59 09/30/18 08:35 Bupropion HCl (Wellbutrin SR) 100 mg DAILY ORAL 09/28/18 09:00 10/28/18 08:59 09/30/18 08:35 Diphenhydramine HCl (Benadryl) 25 mg Q6H PRN ORAL Itching 09/27/18 16:30 10/27/18 16:29 Docusate Sodium (Colace) 100 mg TWICE A DAY ORAL 09/27/18 18:00 10/27/18 17:59 09/30/18 08:35 Dronabinol (Marinol) 2.5 mg QHS ORAL 09/27/18 21:00 10/27/18 20:59 09/29/18 20:51 Enoxaparin Sodium (Lovenox) 40 mg DAILY SUBQ 10/02/18 09:00 10/11/18 13:59 Famotidine (Pepcid) 20 mg BID ORAL 09/27/18 18:00 10/27/18 17:59 09/30/18 08:35 Hydromorphone HCl (Dilaudid) 0.5 mg Q3H PRN SUBQ Moderate Pain (Pain Scale 4-6) 09/28/18 07:45 10/05/18 07:44 09/29/18 16:18 Ondansetron HCl (Zofran) 4 mg Q4H PRN IVP Nausea & Vomiting 09/27/18 16:30 10/27/18 16:29 Oxycodone HCl (Roxicodone) 5 mg Q3H PRN ORAL Mild Pain (Pain Scale 1-3) 09/27/18 16:45 10/04/18 16:44 09/29/18 12:32 Phenol/Menthol (Chloraseptic) 1 spray Q2H PRN ORAL sore throat 09/27/18 16:00 10/27/18 15:59 Lopez Vazquez MD September 30, 2018 09:54
--- NOTE | 2018-09-30 11:18 | NUR ---
NURSE NOTES: Patient was seen by Dr. Vazquez. RN received new order to resume lovenox today since there is no active bleeding. Order read back and carried out.
[2018-09-30 12:00] VITALS: BP 133/88
[2018-09-30] MEDS: Enoxaparin 40mg Inj SUBQ SCH (14:33)
[2018-09-30] MEDS: oxyCODONE 5mg IR tab ORAL PRN (14:34)
[2018-09-30 16:00] VITALS: BP_SYST 112; BP_SYST 82; BP_DIAS 82; BP_DIAS 88
--- NOTE | 2018-09-30 19:00 | NUR ---
NURSE NOTES: No bleeding from surgical site and patient able to ambulate during shift without difficulties.
--- NOTE | 2018-09-30 19:35 | NUR ---
HAND-OFF: Report given to Venice.
--- NOTE | 2018-09-30 19:35 | NUR ---
NURSE NOTES: Received report from Fransisca De La Paz RN. patient in stable condition. Bed in low position, locked, side rails up x2, call light within reach. Encouraged PO fluids, encouraged use of incentive spirometer. States had small bowel movement today.
[2018-09-30 20:00] VITALS: BP 117/78
[2018-09-30] MEDS: Dronabinol 2.5mg Cap ORAL SCH (21:10)
[2018-10-01] VITALS: BP 158/93
--- NOTE | 2018-10-01 01:30 | NUR ---
NURSE NOTES: Patient sleeping on and off, no complains of pain at this time.
[2018-10-01 04:00] VITALS: BP 138/84
--- NOTE | 2018-10-01 05:30 | NUR ---
NURSE NOTES: Dressing checked, no increase in circled drainage. Dressing changed, sally wrap reapplied. Patient tolerated well.
--- NOTE | 2018-10-01 07:30 | NUR ---
NURSE NOTES: Report received from Venice POLANCO, rounds made. Patient alert, oriented x4, calm, resting in semi-fowlers position in bed. Left hand heplock intact, site asymptomatic. Denies need for pain medication at this time, no SOB, no NV. Encouraged IS use 10x/hr, verbalized understanding. Right SCD on. Left knee dressing noted, CDI. CMS+, no NT, skin warm, wiggles, pedal pulses palpable. Ice pack applied to left knee. Instructed patient to keep hydrated with water. Call light in reach, bed in lowest position, will continue to monitor.
--- NOTE | 2018-10-01 07:30 | NUR ---
HAND-OFF: Report given to SHERRI Vazquez. Patient in stable condition.
[2018-10-01 07:45] VITALS: BP 112/74
--- NOTE | 2018-10-01 09:30 | Progress Note ---
DATE: 10/01/2018 ACUTE PAIN MANAGEMENT PHYSICIAN PROGRESS NOTE MEDICATIONS: Medication administration record reviewed. Medications include Colace, Pepcid, Norvasc, Wellbutrin, Lovenox, and Marinol. P.r.n. medications include Chloraseptic spray, Mylanta, Benadryl, Zofran, Tylenol, oxycodone, and Dilaudid. LABORATORY STUDIES: No interval laboratory studies. Last hematocrit on September 29, 2018 was 41. OBJECTIVE: VITAL SIGNS: T-max at midnight last night was 100.2, currently afebrile, pulse 86, respirations 16, blood pressure 138/84, and oxygen saturation 93% on room air. I saw the patient at the bedside with a female english tutor. I discussed the case with the charge nurse RN, Geovanna and the orthopedic floor nurse RN, Taylor. The left knee dressing appears clean and dry. The patient continues to increase usage of the CPM device as well as ambulate with physical therapy. The patient does live on a second story floor, so will need stairs-training with physical therapy prior to discharge to home. The patient does state that he has friends who live with him and should be able to assist with activities of daily living. I did leave a prescription for Percocet for outpatient usage. The patient's current analgesic regimen seems adequate for his pain complaints. He is tolerating regular diet. He denied any shortness of breath or chest pain. The patient continues to have persistent late night low-grade fevers. I will defer this issue to Dr. Pete, so I expect will discuss with Dr. Stallings to determine discharge planning. The patient is hopeful to discharge home soon when cleared by Dr. Pete and Dr. Stallings. Lopez Jarquin M.D. DR: MYLA JOB#: [id number] CC:
[2018-10-01] MEDS: Docusate 100mg cap ORAL SCH ×2 (09:50→18:40)
[2018-10-01] MEDS: BuPROPion SR 100mg tab ORAL SCH (09:50)
[2018-10-01] MEDS: Enoxaparin 40mg Inj SUBQ SCH (09:52)
--- NOTE | 2018-10-01 10:21 | Pulmonology Progress Note ---
Assessment/Plan Assessment/Plan Pulmonary Progress Assessment/Plan: left knee arthritis left knee replacement No new complaintts, pain controlled PLAN 1. incentive spirometry 2. Lovenox 3. PT evaluation and therapy 4. Hydration 5. Pain management 6. discharge planning Subjective Allergies: Coded Allergies: No Known Allergies (Unverified , 09/27/18) Subjective care noted overall doing well Objective Vital Signs Noted Laboratory Tests Noted 09/29/18 05:50: White Blood Count 10.9H, Red Blood Count 4.32L, Hemoglobin 14.2, Hematocrit 40.6L, Mean Corpuscular Volume 94, Mean Corpuscular Hemoglobin 32.8H, Mean Corpuscular Hemoglobin Concent 35.0, Red Cell Distribution Width 12.2, Platelet Count 144L, Mean Platelet Volume 6.3L, Neutrophils (%) (Auto) 70.6, Lymphocytes (%) (Auto) 13.1L, Monocytes (%) (Auto) 14.1H, Eosinophils (%) (Auto) 1.0, Basophils (%) (Auto) 1.3, Prothrombin Time 11.4, Prothromb Time International Ratio 1.1 Height (Feet): 5 Height (Inches): 5.00 Weight (Pounds): 180 Objective WDWN NAD clear breath sounds bilaterally without rhonchi or wheeze [id number] without MRG NABS nontender no HSM no CCE nonfocal knee dressed, on CPM Subjective ROS Limited/Unobtainable: No Allergies: Coded Allergies: No Known Allergies (Unverified , 09/27/18) Objective Last 24 Hour Vital Signs Date Time Temp Pulse Resp B/P (MAP) Pulse Ox O2 Delivery O2 Flow Rate FiO2 10/01/18 09:50 91 112/74 10/01/18 07:45 98.6 91 22 112/74 (87) 97 10/01/18 04:00 98.6 86 16 138/84 (102) 96 10/01/18 00:00 100.2 90 18 158/93 (114) 97 09/30/18 21:00 Room Air 09/30/18 20:00 99.7 84 20 117/78 (91) 98 09/30/18 16:00 99.5 90 19 112/82 (92) 95 09/30/18 12:00 97.7 87 20 133/88 (103) 95 Intake and Output 09/30/18 10/01/18 19:00 07:00 Intake Total 480 ml 450 ml Output Total 900 ml Balance 480 ml -450 ml Intake Oral 480 ml 450 ml Output Urine Total 900 ml # Voids 4 # Bowel Movements 1 Laboratory Tests 10/01/18 05:34: Prothrombin Time 10.7, Prothromb Time International Ratio 1.0 Current Medications Medications (Trade) Dose Ordered Sig/Stacey Route PRN Reason Start Time Stop Time Status Last Admin Dose Admin Acetaminophen (Tylenol) 650 mg Q6H PRN ORAL Temp > 100.5 09/27/18 16:30 10/27/18 16:29 09/30/18 00:44 Al Hydroxide/Mg Hydroxide (Mylanta) 30 ml Q6H PRN ORAL gerd 09/27/18 16:30 10/27/18 16:29 Amlodipine Besylate (Norvasc) 5 mg DAILY ORAL 09/28/18 09:00 10/28/18 08:59 10/01/18 09:50 Bupropion HCl (Wellbutrin SR) 100 mg DAILY ORAL 09/28/18 09:00 10/28/18 08:59 10/01/18 09:50 Diphenhydramine HCl (Benadryl) 25 mg Q6H PRN ORAL Itching 09/27/18 16:30 10/27/18 16:29 Docusate Sodium (Colace) 100 mg TWICE A DAY ORAL 09/27/18 18:00 10/27/18 17:59 10/01/18 09:50 Dronabinol (Marinol) 2.5 mg QHS ORAL 09/27/18 21:00 10/27/18 20:59 09/30/18 21:10 Enoxaparin Sodium (Lovenox) 40 mg DAILY SUBQ 09/30/18 14:00 10/11/18 13:59 10/01/18 09:52 Famotidine (Pepcid) 20 mg BID ORAL 09/27/18 18:00 10/27/18 17:59 10/01/18 09:50 Hydromorphone HCl (Dilaudid) 0.5 mg Q3H PRN SUBQ Moderate Pain (Pain Scale 4-6) 09/28/18 07:45 10/05/18 07:44 09/29/18 16:18 Ondansetron HCl (Zofran) 4 mg Q4H PRN IVP Nausea & Vomiting 09/27/18 16:30 10/27/18 16:29 Oxycodone HCl (Roxicodone) 5 mg Q3H PRN ORAL Mild Pain (Pain Scale 1-3) 09/27/18 16:45 10/04/18 16:44 09/30/18 14:34 Phenol/Menthol (Chloraseptic) 1 spray Q2H PRN ORAL sore throat 09/27/18 16:00 10/27/18 15:59 Lopez Vazquez MD October 01, 2018 10:21
[2018-10-01 11:40] VITALS: BP 116/80
--- NOTE | 2018-10-01 11:54 | NUR ---
CASE MANAGEMENT: REVIEW 10/01/2018 SI:UNILATERAL PRIMARY OA. T 98.6 HR 91 RR 22 B/P 112/74 SATS 97% ON RA NO LABS TODAY IS:PEPCID PO BID NORVASC PO QD WELLBUTRIN PO QD LOVENOX SUBQ QD MARINOL PO QHS MED/SURG STATUS
[2018-10-01] MEDS: oxyCODONE 5mg IR tab ORAL PRN (14:55)
--- NOTE | 2018-10-01 15:00 | NUR ---
NURSE NOTES: Left knee dressing changed. Mild swelling/redness, small dried bloody/yellow drainage, mild bruising, juan antonio intact. Dry, sterile dressing (4x4) applied and secured with large tegederm x2. Ice pack applied. Rolled towel beneath left heel. Will continue to monitor.
[2018-10-01 15:45] VITALS: BP 124/74
[2018-10-01] MEDS: Hydromorphone 0.5mg/0.5ml inj SUBQ PRN (16:26)
--- NOTE | 2018-10-01 19:20 | NUR ---
HAND-OFF: Report given to Fredo POLANCO.
--- NOTE | 2018-10-01 19:30 | NUR ---
NURSE NOTES: Patient received in bed, awake and alert. L knee dressing dry and intact. No signs of active bleeding. IS and PO fluids provided for patient, instructed to use IS and hydrate often. Verbalized understanding. Call light within reach. Will monitor.
[2018-10-01 20:02] VITALS: BP 136/83
[2018-10-01] MEDS: Dronabinol 2.5mg Cap ORAL SCH (20:37)
[2018-10-02 00:44] VITALS: BP 147/96
--- NOTE | 2018-10-02 01:00 | Progress Note ---
DATE: 10/02/2018 ACUTE PAIN MANAGEMENT PHYSICIAN PROGRESS NOTE MEDICATIONS: Medication administration record reviewed. Medications include Colace, Pepcid, Norvasc, Wellbutrin, Lovenox, and Marinol at bedtime. PRN medications include Chloraseptic spray, Mylanta, Benadryl, Zofran, Tylenol, oxycodone, and Dilaudid. LABORATORY STUDIES: No interval laboratory studies. OBJECTIVE: VITAL SIGNS: Within normal limits. Afebrile, pulse 88, respirations 20, blood pressure 136/83, and oxygen saturation 97% on room air. Yesterday, the patient was stating that he was hoping to go home. As physical therapy training continued, the patient relates that since he lives at home, he will require further physical therapy treatment and he is now reluctant to discharge presently. The bottle caser, Patty August reviewed the patient's chart, but did not discuss any changes discharge planning from the previous extrication to return home. The patient denies shortness of breath or chest pain. The patient has been using p.r.n. pain medications along with at bedtime Marinol for good analgesic efficacy. We will continue supportive care and physical therapy training for the patient. He will need stairs training as well. I will defer discharge planning to Dr. Stallings and Dr. Pete. Incentive spirometer remains at the bedside for good pulmonary toilet. The patient is on chemical anticoagulation for DVT prophylaxis. Lopez Jarquin M.D. DR: CARTER JOB#: [id number] CC:
[2018-10-02 04:00] VITALS: BP 126/76
--- NOTE | 2018-10-02 07:43 | NUR ---
HAND-OFF: Report given to Cristhian POLANCO.
[2018-10-02 08:00] VITALS: BP 133/83
--- NOTE | 2018-10-02 08:00 | NUR ---
NURSE NOTES: Received report from Fredo POLANCO, pt a/a/o x4 laying in bed with no signs of distress or other issues at this time. surgical dressing dry and intact. IV on the left PRADHAN gauge #22 heplock. pt able to ambulate with staff assistance. call light within reach, bed in lowest position. side rales up x2. I will f/u as needed. plan for possible d/c home with home health.
--- NOTE | 2018-10-02 08:33 | General Progress Note ---
Assessment/Plan Assessment/Plan: left knee arthritis left knee replacement PLAN 1. incentive spirometry 2. Lovenox 3. PT evaluation and therapy 4. Hydration 5. Pain management 6. discharge planning hope today Subjective Allergies: Coded Allergies: No Known Allergies (Unverified , 09/27/18) Subjective care noted overall doing well Objective Last 24 Hour Vital Signs Date Time Temp Pulse Resp B/P (MAP) Pulse Ox O2 Delivery O2 Flow Rate FiO2 10/02/18 04:00 99.3 89 20 126/76 (93) 95 10/02/18 00:44 99.7 94 20 147/96 (113) 94 10/01/18 20:43 Room Air 10/01/18 20:02 98.9 88 20 136/83 (100) 97 10/01/18 15:45 98.1 83 20 124/74 (91) 96 10/01/18 11:40 97.5 84 20 116/80 (92) 97 10/01/18 09:50 91 112/74 10/01/18 09:00 Room Air Intake and Output 10/01/18 10/02/18 19:00 07:00 Intake Total 1700 ml 500 ml Output Total 700 ml Balance 1000 ml 500 ml Intake Oral 1700 ml 500 ml Output Urine Total 700 ml # Voids 7 3 Height (Feet): 5 Height (Inches): 5.00 Weight (Pounds): 180 Objective WDWN NAD clear breath sounds bilaterally without rhonchi or wheeze [id number] without MRG NABS nontender no HSM no CCE nonfocal knee dressed Gama Pete MD October 02, 2018 08:33
[2018-10-02] MEDS ORDERED: Enoxaparin 40mg Inj SUBQ SCH (09:00)
[2018-10-02] MEDS: Enoxaparin 40mg Inj SUBQ SCH (09:01)
[2018-10-02] MEDS: BuPROPion SR 100mg tab ORAL SCH (09:01)
[2018-10-02] MEDS: Docusate 100mg cap ORAL SCH (09:01)
[2018-10-02] MEDS: oxyCODONE 5mg IR tab ORAL PRN ×2 (10:37→15:17)
[2018-10-02] MEDS ORDERED: ASPIR 8181 MG ORAL (11:26)
[2018-10-02 12:00] VITALS: BP 137/85
[2018-10-02] MEDS ORDERED: PERCOCET 5-3251 EACH ORAL (15:10)
--- NOTE | 2018-10-02 16:15 | NUR ---
NURSE NOTES: Received order to dc home. belongings list and discharge instructions given to patient and pt's partner. also given RX for Percocet 5 #50. pt stated that he will go to his regular pharmacy to fill out prescription. IV removed prior to d/c. pt is aware that [facility] will start services tomorrow for wound care and Pt eval and tx. Pt left the floor via w/c with no signs of distress or other issues at this time. pt's partner will provide transportation. I will f/u as needed.
--- NOTE | 2018-10-03 18:45 | Operative Note - Dictated ---
DATE OF OPERATION: 09/28/2018 NOTE: POOR AUDIO PREOPERATIVE DIAGNOSIS: Left knee end-stage osteoarthritis. POSTOPERATIVE DIAGNOSIS: Left knee end-stage osteoarthritis. PROCEDURE: Left total knee replacement with the Jerod implants. SURGEON: Tomas Stallings M.D. RING MAKER: Unknown. PETS SALESPERSON: None. PREOPERATIVE NOTE: This is a pleasant gentleman, who has been having pain in his knee associated with failed conservative treatment. I explained to him the surgery and the risks and failure of surgery, infection, bleeding, anesthetic risks, damage, and implant failure. The patient agreed. Consents were obtained. OR NOTE: Under the benefit of endotracheal intubation, IV anesthetic, and antibiotics, the patient's knee was prepped and draped in appropriate manner. A midline incision was made, incised through subcutaneous down through the medial retinaculum. I everted the patella and then I around the patella as there were no changes accepting the 5 degrees femur and making my anterior cuts, posterior cuts, anterior chamfer and posterior chamfer cuts made and then proximal tibia cut was 2 mm at the medial side femur. I irrigated the wound copiously removing osteophytes cementing the femur and tibia removing the extra cement full range of motion and full stability throughout all . Irrigated wound copiously 01:57 #1 Vicryl, subcutaneous 2-0 Vicryl skin juan antonio. EBL was 100 mL. There were no complications. Tomas Stallings M.D. DR: BRAXTON JOB#: [id number] CC:
--- NOTE | 2018-10-04 14:37 | Discharge Summary ---
Discharge Summary Hospital Course Date of Admission September 27, 2018 at 06:09 Date of Discharge October 02, 2018 at 16:15 Admitting Diagnosis left knee end stage osteoarthritis Reason for Hospitalization: elective surgery HPI Jonny Vera is a 68 year old male who was admitted on September 27, 2018 at 06: 09 for Left Knee Osteoarthritis Consultations Dr Pete IM Procedures s/p 09/27/[address] Stallings Left total knee replacement with the Jerod implants. Hospital Course status post surgery course of recovery uneventful initially IV fluids s/p perioperative antibiotics neurovascular status closely monitored, stable incision clean, dry, and intact pain management addressed pain specialist followed; pain controlled hemodynamically stable ambulated with PT fall precautions maintained DVT prophylaxis provided use of incentive spirometry was encouraged while in the bed tolerated diet , IV fluids discontinued GI prophylaxis provided antiemetics were on board as needed blood pressure was managed with CCB and HcTZ, remained stable voided freely bowel regimen instituted patient was stable for discharge discharge instructions provided follow up with surgeon as outpatient as advised FINAL DIAGNOSES left knee end stage osteoarthritis s/p left total knee replacement HTN Discharge Medications Continued Medications: Amlodipine Besylate* (Amlodipine Besylate*) 5 Mg Tablet 5 MG ORAL DAILY, TAB (This prescription has been renewed) Aspirin* (Aspir 81*) 81 Mg Tablet.dr 81 MG ORAL EVERY 12 HOURS for 5 Days, TAB (This prescription has been renewed) Bupropion Hcl* (Bupropion Hcl*) 100 Mg Tablet 100 MG ORAL DAILY, #1 TAB Hydrochlorothiazide* (Hydrochlorothiazide*) 12.5 Mg Capsule 12.5 MG ORAL DAILY, CAP (This prescription has been renewed) Oxycodone/Acetaminophen 5-325* (Percocet 5-325 Mg Tablet*) 1 Each Tablet 1 TAB ORAL Q6H PRN for For Pain, #50 TAB 0 Refills (This prescription has been renewed) Unable to Obtain Medications (Unable To Obtain Meds) 1 Ea Ea (This prescription has been renewed) Discharge Condition Upon Discharge: stable Discharge Disposition Patient was discharged home with [facility] Discharge Instructions Discharge Instructions Special Instructions I have been assigned to complete a D/C Summary on this account. I was not involved in the patient management Nidhi Vale NP October 04, 2018 14:37
== END 2018-10-02 16:15 | disposition home health service (06) | DRG 470 ==
LOC: SDSOVERFLO 06:09 → 3E 12:15
PROC: 0SRD0J9 Replacement of Left Knee Joint with Synthetic Substitute, Cemented, Open Approach (ICD-10-PCS; principal; 2018-09-28)
DX: M17.12 Unilateral primary osteoarthritis, left knee (principal); B19.20 Unspecified viral hepatitis C without hepatic coma; I10 Essential (primary) hypertension; E66.9 Obesity, unspecified; G89.18 Other acute postprocedural pain; Z68.29 Body mass index [BMI] 29.0-29.9, adult
CPT/HCPCS: 36415; 80048; 85025; 85610; 85730; 86850; 86900; 86901; 86920; 87081; 93005; 94003; 94150; J2250; J2405